=== PATIENT | female | born 1995 | race Caucasian/White ===

== ENCOUNTER 2017-11-03 15:36 | Emergency (ER) | payer BC ==
[2017-11-03 16:05] VITALS: BP 127/76
[2017-11-03] MEDS ORDERED: Ketorolac 60 MG/2 ML SDV IM ONE (16:17)
[2017-11-03] MEDS ORDERED: Metoclopramide 10 MG/2 ML SDV IM ONE (16:17)
--- NOTE | 2017-11-04 01:25 | EDM.PDOC ---
ED HPI GENERAL MEDICAL PROBLEM - General Chief Complaint: Headache Stated Complaint: MIGRAINE Time Seen by Provider: 11/03/17 15:55 Source of Information: Reports: Patient History Limitations: Reports: No Limitations - History of Present Illness INITIAL COMMENTS - FREE TEXT/NARRATIVE: Pt. states that she woke with a migraine headache at approx. 0400 in the AM. Pt. states that this is similar to migraines that she has had in the past. Denies any head or facial trauma. Pt. states that she had some visual disturbance, but it is similar to what she has experienced in the past. She has photophobia. No obvious aura, as she woke with the headache. Denies any head trauma. No fever or chills. No extremity weakness. Onset: Today Onset Date: 11/04/17 Onset Time: 16:41 Location: Reports: Head Quality: Reports: Throbbing Severity: Moderate () Improves with: Reports: Rest Associated Symptoms: Reports: Headaches, Nausea/Vomiting Headache Pain Score (Numeric/FACES): 7 - Related Data Allergies Allergy/AdvReac Type Severity Reaction Status Date / Time hydrocodone AdvReac Vomiting Verified 11/03/17 15:57 Home Meds: Home Meds Ethinyl Estradiol/Etonogestrel [Nuvaring Vaginal Ring] 1 dose VAG ASDIRECTED [History] Ketorolac [Toradol] 1 tab PO Q6H PRN 11/03/17 [History] Past Medical History Respiratory History: Reports: Asthma Psychiatric History: Reports: Depression Social & Family History - Tobacco Use Smoking Status *Q: Current Every Day Smoker Years of Tobacco use: 10 Packs/Tins Daily: 0.5 - Alcohol Use Days Per Week of Alcohol Use: 0 - Recreational Drug Use Recreational Drug Use: No ED ROS GENERAL - Review of Systems Review Of Systems: See Below Constitutional: Reports: No Symptoms HEENT: Reports: Vision Change Respiratory: Reports: No Symptoms Cardiovascular: Reports: No Symptoms Endocrine: Reports: No Symptoms GI/Abdominal: Reports: Nausea, Vomiting : Reports: No Symptoms Musculoskeletal: Reports: No Symptoms Skin: Reports: No Symptoms Neurological: Reports: Headache Psychiatric: Reports: No Symptoms - Physical Exam Exam: See Below Exam Limited By: No Limitations General Appearance: Alert, WD/WN, No Apparent Distress Eye Exam: Bilateral Eye: EOMI, Normal Fundi, Normal Inspection, PERRL Ears: Normal External Exam, Normal Canal, Hearing Grossly Normal, Normal TMs Nose: Normal Inspection, Normal Mucosa, No Blood Throat/Mouth: Normal Inspection, Normal Lips, Normal Teeth, Normal Gums, Normal Oropharynx, Normal Voice, No Airway Compromise Head Exam: Atraumatic, Normocephalic Neck: Normal Inspection, Supple, Non-Tender, Full Range of Motion Respiratory/Chest: No Respiratory Distress, Lungs Clear, Normal Breath Sounds, No Accessory Muscle Use, Chest Non-Tender Cardiovascular: Normal Peripheral Pulses, Regular Rate, Rhythm, No Edema, No Gallop, No JVD, No Murmur, No Rub Neuro Exam (Abbreviated): Alert, Oriented, CN II-XII Intact, Normal Cognition, Normal Gait, Normal Reflexes, No Motor/Sensory Deficits DTR: 2+: Patella (R), Patella (L) Back Exam: Normal Inspection, Full Range of Motion, NT Extremities: Normal Inspection, Normal Range of Motion, Non-Tender, No Pedal Edema, Normal Capillary Refill Course - Vital Signs Last Recorded V/S: Last Vital Signs Temp 37.1 C 11/03/17 16:00 Pulse 76 11/03/17 16:00 Resp 16 11/03/17 16:00 BP 127/76 11/03/17 16:00 Pulse Ox 96 11/03/17 16:00 - Orders/Labs/Meds Meds: Medications Discontinued Medications Generic Name Dose Route Start Last Admin Trade Name Misha PRN Reason Stop Dose Admin Ketorolac Tromethamine 60 mg 11/03/17 16:17 11/03/17 16:30 Toradol IM 11/03/17 16:18 60 mg ONETIME ONE Administration Metoclopramide HCl 10 mg 11/03/17 16:17 11/03/17 16:30 Reglan IM 11/03/17 16:18 10 mg ONETIME ONE Administration Departure - Departure Time of Disposition: 16:41 Disposition: Home, Self-Care 01 Condition: Good Clinical Impression: Migraine - Discharge Information Instructions: Metoclopramide tablets Forms: ED Department Discharge Additional Instructions: Home to rest. Drink plenty of fluids. Return if discomfort isn't improving. Reglan 10mg every 6 hours as needed for migraine/nausea.
== END 2017-11-03 16:41 | disposition home or self-care (01) ==
LOC: VM.ED 15:36
DX: G43.909 Migraine, unspecified, not intractable, without status migrainosus (principal); F17.210 Nicotine dependence, cigarettes, uncomplicated; Z88.5 Allergy status to narcotic agent
CPT/HCPCS: 96372; 99283; J1885; J2765

== ENCOUNTER 2017-11-04 17:18 | Emergency (ER) | payer BC ==
[2017-11-04 17:27] VITALS: BP 122/77
[2017-11-04] MEDS: Ondansetron 4 MG Tab.DIS PO ONE (18:00)
[2017-11-04] MEDS: diphenhydrAMINE 50 MG/ML SDV IM ONE (18:01)
[2017-11-04] MEDS: Ketorolac 60 MG/2 ML SDV IM ONE (18:01)
--- NOTE | 2017-11-04 19:00 | EDM.PDOC ---
ED HPI GENERAL MEDICAL PROBLEM - General Chief Complaint: Headache Stated Complaint: migraine Time Seen by Provider: 11/04/17 17:33 Source of Information: Reports: Patient History Limitations: Reports: No Limitations - History of Present Illness INITIAL COMMENTS - FREE TEXT/NARRATIVE: Pt. presents to ER with complaints of continued headache. Pt. states that the discomfort never resolved. She denies any paresthesia. No difficulty with speech or ambulation. No vision issues or history of recent head trauma. Pt. was seen yesterday for the same and given reglan and toradol. She states that the initial injections helped a small amount but the oral medications did not. She denies any head trauma or aura. She does complain of photophobia. Onset: Today Location: Reports: Head Quality: Reports: Throbbing Severity: Severe Associated Symptoms: Reports: Headaches, Nausea/Vomiting. Denies: Confusion, Fever/Chills, Seizure, Shortness of Breath migraine headache Pain Score (Numeric/FACES): 7 - Related Data Allergies Allergy/AdvReac Type Severity Reaction Status Date / Time hydrocodone AdvReac Vomiting Verified 11/04/17 17:28 Home Meds: Home Meds Ethinyl Estradiol/Etonogestrel [Nuvaring Vaginal Ring] 1 dose VAG ASDIRECTED [History] Ketorolac [Toradol] 1 tab PO Q6H PRN 11/03/17 [History] Metoclopramide HCl [Reglan] 10 mg PO Q6H PRN 11/04/17 [History] Past Medical History Respiratory History: Reports: Asthma Psychiatric History: Reports: Depression Social & Family History - Tobacco Use Smoking Status *Q: Current Every Day Smoker Years of Tobacco use: 10 Packs/Tins Daily: 0.5 - Alcohol Use Days Per Week of Alcohol Use: 0 - Recreational Drug Use Recreational Drug Use: No ED ROS GENERAL - Review of Systems Review Of Systems: See Below Constitutional: Reports: No Symptoms HEENT: Reports: No Symptoms Respiratory: Reports: No Symptoms Cardiovascular: Reports: No Symptoms Endocrine: Reports: No Symptoms GI/Abdominal: Reports: No Symptoms : Reports: No Symptoms Musculoskeletal: Reports: No Symptoms Skin: Reports: No Symptoms Neurological: Reports: Headache. Denies: Confusion, Dizziness, Numbness, Paresthesia, Pre-Existing Deficit, Seizure, Tingling, Tremors, Trouble Speaking , Difficulty Walking, Weakness, Change in Speech, Gait Disturbance Psychiatric: Reports: No Symptoms Hematologic/Lymphatic: Reports: No Symptoms Immunologic: Reports: No Symptoms - Physical Exam Exam: See Below Exam Limited By: No Limitations General Appearance: Alert, WD/WN, No Apparent Distress Eye Exam: Bilateral Eye: EOMI, Normal Fundi, Normal Inspection, PERRL Ears: Normal External Exam, Normal Canal, Hearing Grossly Normal, Normal TMs Nose: Normal Inspection, Normal Mucosa, No Blood Throat/Mouth: Normal Inspection, Normal Lips, Normal Teeth, Normal Gums, Normal Oropharynx, Normal Voice, No Airway Compromise Head Exam: Atraumatic, Normocephalic Neck: Normal Inspection, Supple, Non-Tender, Full Range of Motion Respiratory/Chest: No Respiratory Distress, Lungs Clear, Normal Breath Sounds, No Accessory Muscle Use, Chest Non-Tender Cardiovascular: Normal Peripheral Pulses, Regular Rate, Rhythm, No Edema, No Gallop, No JVD, No Murmur, No Rub GI/Abdominal: Normal Bowel Sounds, Soft, Non-Tender, No Organomegaly, No Distention, No Abnormal Bruit, No Mass Neuro Exam (Abbreviated): Alert, Oriented, CN II-XII Intact, Normal Cognition, Normal Gait, Normal Reflexes, No Motor/Sensory Deficits Back Exam: Normal Inspection, Full Range of Motion, NT Extremities: Normal Inspection, Normal Range of Motion, Non-Tender, No Pedal Edema, Normal Capillary Refill Skin Exam: Warm, Dry, Intact, Normal Color, No Rash Course - Vital Signs Last Recorded V/S: Last Vital Signs Temp 36.7 C 11/04/17 17:27 Pulse 85 11/04/17 17:27 Resp 16 11/04/17 17:27 BP 122/77 11/04/17 17:27 Pulse Ox 99 11/04/17 17:27 - Orders/Labs/Meds Meds: Medications Discontinued Medications Generic Name Dose Route Start Last Admin Trade Name Misha PRN Reason Stop Dose Admin Chlorpromazine HCl 50 mg 11/04/17 17:48 11/04/17 18:01 Thorazine IM 11/04/17 17:49 50 mg ONETIME ONE Administration Diphenhydramine HCl 50 mg 11/04/17 17:48 11/04/17 18:01 Benadryl IM 11/04/17 17:49 50 mg ONETIME ONE Administration Ketorolac Tromethamine 60 mg 11/04/17 17:49 11/04/17 18:01 Toradol IM 11/04/17 17:50 60 mg ONETIME ONE Administration Ondansetron HCl 4 mg 11/04/17 17:50 11/04/17 18:00 Zofran Odt PO 11/04/17 17:51 4 mg ONETIME ONE Administration Departure - Departure Time of Disposition: 18:53 Disposition: Home, Self-Care 01 Condition: Good Clinical Impression: Migraine - Discharge Information Referrals: Cari Galeano DO [Primary Care Provider] - Forms: ED Department Discharge Additional Instructions: Continue with the reglan and ibuprofen as needed for continued headache. Return to ER if getting worse or not gradually improving. Drink lots and lots of water. Recheck in clinic in 7-10 days.
== END 2017-11-04 18:56 | disposition home or self-care (01) ==
LOC: VM.ED 17:18
DX: G43.909 Migraine, unspecified, not intractable, without status migrainosus (principal); F17.210 Nicotine dependence, cigarettes, uncomplicated; Z88.5 Allergy status to narcotic agent
CPT/HCPCS: 96372; 99283; A9270; J1200; J1885; J3230

== ENCOUNTER 2017-11-06 22:12 | Emergency (ER) | payer BC ==
--- NOTE | 2017-11-06 22:27 | EDM.PDOC ---
ED HPI GENERAL MEDICAL PROBLEM - General Chief Complaint: Headache Stated Complaint: Persistent Headache Time Seen by Provider: 11/06/17 22:18 Source of Information: Reports: Patient, Old Records, RN, RN Notes Reviewed History Limitations: Reports: No Limitations - History of Present Illness INITIAL COMMENTS - FREE TEXT/NARRATIVE: 22-year-old female presents to the emergency room at [facility] complaining of a severe generalized headache. The patient states that her symptoms began just about a week ago. The patient was seen in this emergency room on November 03 and for the same complaint. The patient was given a prescription for Reglan which she states has not really helped. The patient was also given Toradol, Thorazine, and Benadryl which did take her headache away while she was in the emergency room department. The patient states that she has been headache free for the past couple of days, but earlier this evening the headache returned and seemed more severe. The patient does complain of blurry vision. The patient complains of photophobia. The patient denies any ambulation problems. The patient denies any chest pain or shortness of breath. The patient states she feels very nauseated and has vomited once this evening. The patient states the vomitus was bile in characteristic. The patient denies any diarrhea or abdominal pain. The patient states she is staying well hydrated with good by mouth fluid intake. The patient states her last migraine was about 2 years ago. She states this one seems worse. The patient has not had any formal workup of headaches in the past. The patient has never been seen by neurology. The patient denies any aura. The patient denies any floaters. The patient denies any ear symptomatology. The patient has not had any recent infections. Otherwise no other concerns. Onset: Unknown/Unsure Duration: Constant, Getting Worse Location: Reports: Head Quality: Reports: Throbbing Severity: Severe Improves with: Reports: None Worsens with: Reports: Movement Context: Denies: Activity, Sick Contact, Trauma Associated Symptoms: Reports: Nausea/Vomiting whole head Pain Score (Numeric/FACES): 8 - Related Data Allergies Allergy/AdvReac Type Severity Reaction Status Date / Time hydrocodone AdvReac Vomiting Verified 11/06/17 22:57 Home Meds: Home Meds Ethinyl Estradiol/Etonogestrel [Nuvaring Vaginal Ring] 1 dose VAG ASDIRECTED [History] Ketorolac [Toradol] 1 tab PO Q6H PRN 11/03/17 [History] Metoclopramide HCl [Reglan] 10 mg PO Q6H PRN 11/04/17 [History] Past Medical History Respiratory History: Reports: Asthma Psychiatric History: Reports: Depression Social & Family History - Tobacco Use Smoking Status *Q: Current Every Day Smoker Years of Tobacco use: 10 Packs/Tins Daily: 0.5 - Alcohol Use Days Per Week of Alcohol Use: 0 - Recreational Drug Use Recreational Drug Use: No ED ROS GENERAL - Review of Systems Review Of Systems: See Below Constitutional: Denies: Fever, Chills, Weakness HEENT: Reports: Vision Change (blurry vision bilateral) Respiratory: Denies: Shortness of Breath, Cough Cardiovascular: Denies: Chest Pain, Palpitations GI/Abdominal: Reports: Nausea, Vomiting. Denies: Abdominal Pain Skin: Reports: No Symptoms Neurological: Reports: Headache. Denies: Dizziness, Numbness, Paresthesia, Pre- Existing Deficit, Gait Disturbance - Physical Exam Exam: See Below Exam Limited By: No Limitations General Appearance: Alert, No Apparent Distress Eye Exam: Bilateral Eye: EOMI, Normal Inspection, PERRL Ears: Normal External Exam, Normal Canal, Normal TMs Head Exam: Atraumatic, Normocephalic Neck: Supple, Non-Tender, Full Range of Motion Respiratory/Chest: No Respiratory Distress, Lungs Clear, Normal Breath Sounds Cardiovascular: Normal Peripheral Pulses, Regular Rate, Rhythm GI/Abdominal: Normal Bowel Sounds, Soft, Non-Tender Neuro Exam (Abbreviated): Alert, Oriented, Normal Cognition, No Motor/Sensory Deficits Extremities: Normal Inspection Skin Exam: Warm, Dry, Intact, Normal Color, No Rash Course - Vital Signs Last Recorded V/S: Last Vital Signs Temp 36.4 C 11/06/17 22:50 Pulse 88 11/06/17 22:50 Resp 20 11/06/17 22:50 BP 114/68 11/06/17 22:50 Pulse Ox 97 11/06/17 22:50 - Orders/Labs/Meds Orders: Active Orders 24 hr Category Date Time Status Head wo Cont [CT] Stat Exams 11/06/17 22:43 Taken Sodium Chloride 0.9% [Saline Flush] Med 11/06/17 22:43 Active 10 ml FLUSH ASDIRECTED PRN Peripheral IV Insertion Adult [OM.PC] Routine Oth 11/06/17 22:43 Ordered Medication Orders Sodium Chloride (Saline Flush) 10 ml FLUSH ASDIRECTED PRN PRN Reason: Keep Vein Open Labs: Laboratory Tests 11/06/17 11/06/17 11/06/17 Range/Units 23:02 23:02 23:12 WBC 10.4 H (4.0-10.0) x10^3/uL RBC 3.96 L (4.00-5.50) x10^6/uL Hgb 11.7 L (12.0-16.0) g/dL Hct 35.9 (33.0-47.0) % MCV 90.7 (78.0-93.0) fL MCH 29.5 (26.0-32.0) pg MCHC 32.6 (32.0-36.0) g/dL RDW Coeff of [place]ore[place] 13.0 (10.0-15.0) % Plt Count 282 (130-400) x10^3/uL Neut % (Auto) 68.5 (50.0-80.0) % Lymph % (Auto) 21.0 L (25.0-50.0) % [place] % (Auto) 8.8 (2.0-11.0) % Eos % (Auto) 1.5 (0.0-4.0) % Baso % (Auto) 0.2 (0.2-1.2) % ESR 22 H (0-21) mm/hr Sodium (136-145) mmol/L Potassium (3.5-5.1) mmol/L Chloride (98-107) mmol/L Carbon Dioxide (21-32) mmol/L BUN (7-18) mg/dL Creatinine (0.55-1.02) mg/dL Est Cr Clr Drug Dosing mL/min Estimated GFR (MDRD) Glucose (74-106) mg/dL Calcium (8.5-10.1) mg/dL Magnesium (1.8-2.4) mg/dL C-Reactive Protein (<=0.9) mg/dL Urine Color Yellow (YELLOW) Urine Appearance Slightly cloudy H (CLEAR) Urine pH 6.5 (5.0-8.0) Ur Specific [place] 1.020 Urine Protein Negative (NEGATIVE) mg/dL Urine Glucose (UA) Negative (NEGATIVE) mg/dL Urine Ketones Negative (NEGATIVE) mg/dL Urine Occult Blood Trace-intact H (NEGATIVE) Urine Nitrite Negative (NEGATIVE) Urine Bilirubin Negative (NEGATIVE) Urine Urobilinogen 0.2 (0.2) EU/dL Ur Leukocyte Esterase Moderate H (NEGATIVE) Urine RBC 0-5 (NOT SEEN) /HPF Urine WBC 5-10 H (NOT SEEN) /HPF Ur Squamous Epith Cells Few H (NEGATIVE) /HPF Urine Bacteria Few H (NEGATIVE) /HPF Urine Mucus Rare H (NEGATIVE) /LPF Urine Opiates Screen Negative (NEGATIVE) Ur Buprenorphine Scrn Negative (NEGATIVE) Ur Oxycodone Screen Negative (NEGATIVE) Urine Methadone Screen Negative (NEGATIVE) Ur Barbiturates Screen Negative (NEGATIVE) Ur Tricyclics Screen Negative (NEGATIVE) Ur Amphetamine Screen Negative (NEGATIVE) U Methamphetamines Scrn Negative (NEGATIVE) Urine MDMA Screen Negative (NEGATIVE) U Benzodiazepines Scrn Negative (NEGATIVE) U Cocaine Metab Screen Negative (NEGATIVE) U Marijuana (THC) Screen Negative (NEGATIVE) 11/06/17 Range/Units 23:12 WBC (4.0-10.0) x10^3/uL RBC (4.00-5.50) x10^6/uL Hgb (12.0-16.0) g/dL Hct (33.0-47.0) % MCV (78.0-93.0) fL MCH (26.0-32.0) pg MCHC (32.0-36.0) g/dL RDW Coeff of [place]orencia (10.0-15.0) % Plt Count (130-400) x10^3/uL Neut % (Auto) (50.0-80.0) % Lymph % (Auto) (25.0-50.0) % [place] % (Auto) (2.0-11.0) % Eos % (Auto) (0.0-4.0) % Baso % (Auto) (0.2-1.2) % ESR (0-21) mm/hr Sodium 143 (136-145) mmol/L Potassium 3.2 L (3.5-5.1) mmol/L Chloride 107 (98-107) mmol/L Carbon Dioxide 25 (21-32) mmol/L BUN 15 (7-18) mg/dL Creatinine 0.8 (0.55-1.02) mg/dL Est Cr Clr Drug Dosing 77.89 mL/min Estimated GFR (MDRD) > 60 Glucose 93 (74-106) mg/dL Calcium 9.0 (8.5-10.1) mg/dL Magnesium 1.7 L (1.8-2.4) mg/dL C-Reactive Protein 1.1 H (<=0.9) mg/dL Urine Color (YELLOW) Urine Appearance (CLEAR) Urine pH (5.0-8.0) Ur Specific [place] Urine Protein (NEGATIVE) mg/dL Urine Glucose (UA) (NEGATIVE) mg/dL Urine Ketones (NEGATIVE) mg/dL Urine Occult Blood (NEGATIVE) Urine Nitrite (NEGATIVE) Urine Bilirubin (NEGATIVE) Urine Urobilinogen (0.2) EU/dL Ur Leukocyte Esterase (NEGATIVE) Urine RBC (NOT SEEN) /HPF Urine WBC (NOT SEEN) /HPF Ur Squamous Epith Cells (NEGATIVE) /HPF Urine Bacteria (NEGATIVE) /HPF Urine Mucus (NEGATIVE) /LPF Urine Opiates Screen (NEGATIVE) Ur Buprenorphine Scrn (NEGATIVE) Ur Oxycodone Screen (NEGATIVE) Urine Methadone Screen (NEGATIVE) Ur Barbiturates Screen (NEGATIVE) Ur Tricyclics Screen (NEGATIVE) Ur Amphetamine Screen (NEGATIVE) U Methamphetamines Scrn (NEGATIVE) Urine MDMA Screen (NEGATIVE) U Benzodiazepines Scrn (NEGATIVE) U Cocaine Metab Screen (NEGATIVE) U Marijuana (THC) Screen (NEGATIVE) Meds: Medications Generic Name Dose Route Start Last Admin Trade Name Freq PRN Reason Stop Dose Admin Sodium Chloride 10 ml 11/06/17 22:43 Saline Flush FLUSH ASDIRECTED PRN Keep Vein Open Discontinued Medications Generic Name Dose Route Start Last Admin Trade Name Freq PRN Reason Stop Dose Admin Diphenhydramine HCl 50 mg 11/06/17 22:46 11/06/17 23:28 Benadryl IVPUSH 11/06/17 22:47 50 mg ONETIME ONE Administration Sodium Chloride 1,000 mls @ 999 mls/hr 11/06/17 22:44 11/06/17 23:20 Normal Saline IV 11/06/17 23:44 999 mls/hr ONETIME ONE Administration Chlorpromazine HCl 50 mg/ 52 mls @ 50 mls/hr 11/06/17 22:45 11/06/17 23:55 Sodium Chloride IV 11/06/17 23:47 50 mls/hr ONETIME ONE Administration Ondansetron HCl 4 mg 11/06/17 22:45 11/06/17 23:28 Zofran IVPUSH 11/06/17 22:46 4 mg ONETIME ONE Administration - Radiology Interpretation Free Text/Narrative:: CT Head: No acute findings - see scanned report in EMR CT Results Date: 11/06/17 CT Results Time: 23:13 Departure - Departure Time of Disposition: 00:41 Disposition: Home, Self-Care 01 Condition: Good Clinical Impression: Headache Qualifiers: Headache type: unspecified Headache chronicity pattern: acute headache Intractability: not intractable Qualified Code(s): R51 - Headache - Discharge Information Instructions: General Headache Without Cause, [id number] Referrals: April Mckeon NP [Ordering Only Provider] - Forms: ED Department Discharge Additional Instructions: 1. Stay well hydrated and rest 2. May alternate Tylenol/Advil as needed 3. Labs and CT were normal, no emergency found, which is great news 4. Highly recommend making an appointment to see your PCP to follow up and headache prevention strategies 5. Continue taking Reglan 6. Call with any questions/concerns - Problem List Review Problem List Initiated/Reviewed/Updated: Yes - My Orders Last 24 Hours: My Active Orders 11/06/17 22:43 Head wo Cont [CT] Stat Sodium Chloride 0.9% [Saline Flush] 10 ml FLUSH ASDIRECTED PRN Peripheral IV Insertion Adult [OM.PC] Routine - Assessment/Plan Last 24 Hours: My Active Orders 11/06/17 22:43 Head wo Cont [CT] Stat Sodium Chloride 0.9% [Saline Flush] 10 ml FLUSH ASDIRECTED PRN Peripheral IV Insertion Adult [OM.PC] Routine Plan: labs and CT scan were thoroughly discussed with the patient. No emergent etiology found for her headaches. The patient's potassium is 3.2 and magnesium is 1.7, which do not require any emergent attention. The patient may supplement these at home. Recommend the patient stay well-hydrated. She may alternate Tylenol and ibuprofen at home. If the patient continues to have headache she really does need to see her primary care provider as she may need a neurology consultation. Patient verbalizes understanding.
[2017-11-06] MEDS ORDERED: Sodium Chloride 0.9% 10 ML Syringe FLUSH PRN (22:43)
[2017-11-06] MEDS ORDERED: Sodium Chloride 0.9% 1,000 ML IV ONE (22:44)
[2017-11-06] MEDS ORDERED: diphenhydrAMINE 50 MG/ML SDV IVPUSH ONE (22:46)
[2017-11-06 22:57] VITALS: BP 114/68
[2017-11-06] MEDS: Ondansetron 4 MG/2 ML SDV IVPUSH ONE ×2 (23:26→23:28)
[2017-11-06 23:35] LABS: CHLORIDE,CL 107 mmol/L (98-107); SODIUM,NA 143 mmol/L (136-145)
== END 2017-11-07 01:05 | disposition home or self-care (01) ==
LOC: VM.ED 22:12
DX: R51 Headache (principal); F17.210 Nicotine dependence, cigarettes, uncomplicated; Z88.5 Allergy status to narcotic agent
CPT/HCPCS: 36415; 70450; 80048; 80305; 81001; 83735; 85025; 85652; 86140; 96361; 96365; 96375; 99284; J1200; J2405; J3230; J7030; J7050

== ENCOUNTER 2022-03-19 15:52 | Emergency (ER) | payer BC, OTHER ==
[2022-03-19 17:08] VITALS: BP 123/78; PULSE 90
== END 2022-03-19 16:20 | disposition home or self-care (01) ==
LOC: VM.ED 15:52
DX: L25.9 Unspecified contact dermatitis, unspecified cause (principal); Z88.5 Allergy status to narcotic agent
CPT/HCPCS: 99282; 99283